=== PATIENT | male | born 1995 | race Caucasian/White ===

== ENCOUNTER 2019-03-07 16:10 | Emergency (ER) | payer BC, SELFPAY ==
[2019-03-07] VITALS (10 sets, daily range): BP systolic 115; BP diastolic 59; PULSE 81–101; RESP 14–50; TEMP 36.8; O2SAT 96–97
--- NOTE | 2019-03-07 16:13 | NUR.NOTE ---
Nursing Note: pt was found at a concert at [place] unresponsive by ems. EMS performed sternal rub which wok PT up. ems sates PT smelled of alcohol and admitted to having a few drinks ems states PT was not cooperative and refused vitals. pt appears visibly intoxicated however is not exhibiting violent behaviors despite his noncompliance. PT thinks he is in senior care
[2019-03-07 16:58] LABS: HCT 37.4 % (40.0-50.0); HGB 13.2 g/dL (13.5-17.5); Mean Corp. HGB Concentration 35.3 g/dL (32.0-36.0); Mean Corpuscular Hemoglobin 32.7 pg (27.0-33.0); Mean Corpuscular Volume 92.6 fL (80-95); Mean Platelet Volume 8.9 fL (8.0-11.0); Platelet Count 251 x1000/uL (130-400); RBC 4.04 m/cumm (4.50-6.00); RBC Distribution Width 11.1 % (11.8-14.1)
[2019-03-07] MEDS: Normal Saline 1,000 ML 1000 ML IV ×2 (17:06→18:08)
[2019-03-07 17:12] LABS: *AMPHETAMINES SCREEN URINE Negative (Negative); *BARBITURATES SCREEN URINE Negative (Negative); *BENZODIAZEPINES SCREEN URINE Negative (Negative); Cannabinoids THC Negative (Negative); Cocaine Screen,Urine Negative (Negative); METHADONE URINE SCREEN Negative (Negative); OPIATES URINE SCREEN Negative (Negative)
[2019-03-07 17:12] LABS: ALT 38 U/L (16-63); AST 30 U/L (15-37); Albumin 3.9 g/dL (3.4-5.0); Alkaline Phosphatase 60 U/L (46-116); Anion Gap 11.7 mmol/L (3-11); BUN 6 mg/dL (7-18); Bilirubin, Total 0.7 mg/dL (0.2-1.0); CO2 24.3 mmol/L (21.0-32.0); CREATININE 0.76 mg/dL (0.70-1.30); Calcium 8.1 mg/dL (8.5-10.1); Chloride 101 mmol/L (98-107); Glucose 112 mg/dL (70-100); Potassium 3.7 mmol/L (3.5-5.1); Sodium 137 mmol/L (136-145); Total Protein 7.3 g/dL (6.4-8.2)
[2019-03-07 17:23] LABS: Tricyclic Antidepressants Negative (Negative)
[2019-03-07 17:24] LABS: Acetaminophen < 2 ug/mL (10-30)
--- NOTE | 2019-03-07 18:20 | NUR.NOTE ---
Nursing Note: pt exhibiting increased clinical sobriety able to keep down liquids and solids
[2019-03-07 18:52] LABS: ETHANOL BLOOD 308.4 mg/dL (<3)
--- NOTE | 2019-03-07 19:36 | W.ED.GENAD ---
Discharge Plan Disposition Patient Disposition: OTHER Condition: Stable Discharge Details Chief Complaint: ETOHWithdr Clinical Impression: Alcohol intoxication Primary Care Provider: [facility] Provider: Vale Nam Home Meds and New Rx's Prescriptions: No Action hydroxyzine HCl 25 mg Tablet 25 mg PO TID PRNRF: 0 Discharge Instructions Instructions: Alcohol Intoxication (ED) Additional Instructions: Stop drinking alcohol. Push fluids by mouth Follow-up with your primary care doctor for reevaluation. Return for any worsening or concerns sooner if needed Medical Decision Making Patient presents found by EMS concern for alcohol. Patient admits to partying for the last 3 days in [place]. Was driving home to [place] when he reports he was tired and pulled over to take a nap. Patient laid in the grass when it was Friday and reports falling asleep. Denies any suicidal or homicidal ideation. Patient's RDS negative. EtOH 300. Patient has received 3 L of fluid. Clinically alert and oriented to speech. Drowsy. Patient patient will be escorted to police custody to sober overnight given be discharged at this time to their custody. Patient is agitated as he wants to go to his hotel room which he has paid for but has no sober ride. Patient is medically cleared. Has no apparent medical issues or injuries. HPI General Date/Time Provider Initiated Documentation: 03/07/19 16:27. HPI Narrative: Patient presents via EMS found asleep in the grass. Patient brought to the ER for concern of EtOH. Patient reports he spent the last 3 days in [place] partying. Patient denies any sites of pain. Denies head, neck or back pain. Denies chest pain, difficulty breathing shortness of breath or wheezing. Denies abdominal pain. Denies any other concerns or complaints at this time. Patient reports he laid down in the grass to fall asleep. Denies suicidality or homicidality. Patient was traveling home to [place] and stopped because he was tired. Patient reports he has not slept in the last 3 days. Related Data Home Medications Medication Instructions Recorded Confirmed hydroxyzine HCl 25 mg PO TID PRN 03/07/19 03/07/19 Allergies Allergy/AdvReac Type Severity Reaction Status Date / Time No Known Allergies Allergy Unverified 03/07/19 16:23 General Stated Complaint: ETOHWithdr MIGUEL: 4 Review of Systems Review of Systems Narrative: CONSTITUTIONAL: The patient denies fevers, chills. EYES: Denies vision changes, blurry vision, or eye pain. ENT: Denies hearing changes, tinnitus, vertigo, sore throat. CARDIAC: Denies chest pain, SOB. RESPIRATORY: Denies cough, sputum. Denies difficulty breathing. GASTROINTESTINAL: Denies abdominal pain, changes in bowel, vomiting or nausea. GENITOURINARY: Denies dysuria, or frequency of urination. MUSCULOSKELETAL: Denies Joint pain, gait changes. NEUROLOGIC: Denies headaches, Denies focal weakness. Denies numbness. INTEGUMENT: Denies rashes. PSYCHIATRIC: Denies behavior changes. Denies anxiety or depression. ENDOCRINOLOGY: Denies fatigue. PSYCHIATRY: Denies depression, agitation or anxiety [facility] Social History Smoking/Tobacco Use Status: Current every day Tobacco Type: cigarettes Alcohol Intake: current Alcohol Intake frequency: a few times a month Alcohol type: beer, wine and hard liquor Drug use: Never Substance use type: marijuana Do you feel safe at home: Yes Do you feel safe in your relationship?: Yes Exam Narrative Exam Narrative: CONST: Healthy appearing patient, in no acute distress. Well hydrated. Alert and alert. HENMT: Head nomocephalic, normal to inspection. Atraumatic. Hearing grossly normal. EYES: General normal appearance. Alignment normal. Eyelids normal. Conjunctiva normal. NECK: Normal visual inspection. FROM. Trachea midline. No Midline tenderness. CHEST: Normal insepection of the chest. RESP: Normal respiratory effort. Speaking full sentences. No cough. No audible wheezing. No retractions. CARDIO: No JVD. MUSCULOSKELETAL: Normal Gait. FROM of all extremities. SKIN: Normal. Dry. No rashes. NEURO: Alert and awake. Speech clear. PSYCH: Normal affect. Cooperative. Course Vital Signs Vital signs: Vital Signs Temperature 36.8 C 03/07/19 16:20 Pulse 88 03/07/19 16:20 Respiratory Rate 17 03/07/19 16:20 Pulse Oximetry 96 03/07/19 16:20 Temperature 36.8 C 03/07/19 16:20 Temperature Source Skin 03/07/19 16:20 Pulse 88 03/07/19 16:20 Respiratory Rate 17 03/07/19 16:20 Respiratory Effort 03/07/19 16:24 Respiratory Pattern Normal 03/07/19 16:33 Blood Pressure Position Supine 03/07/19 16:20 Pulse Oximetry 96 03/07/19 16:20 Oxygen Delivery Method Room Air 03/07/19 16:20 Oxygen Flow Rate 0 03/07/19 16:20 Lab/Test Results Lab/Test Results: Laboratory Tests Range/Units 03/07/19 03/07/19 03/07/19 16:44 16:50 16:50 WBC (4.4-10.8) k/cumm 5.00 RBC (4.50-6.00) m/cumm 4.04 L Hgb (13.5-17.5) g/dL 13.2 L Hct (40.0-50.0) % 37.4 L MCV (80-95) fL 92.6 MCH (27.0-33.0) pg 32.7 MCHC (32.0-36.0) g/dL 35.3 RDW (11.8-14.1) % 11.1 L Plt Count (130-400) x1000/uL 251 MPV (8.0-11.0) fL 8.9 Sodium (136-145) mmol/L 137 Potassium (3.5-5.1) mmol/L 3.7 Chloride (98-107) mmol/L 101 Carbon Dioxide (21.0-32.0) mmol/L 24.3 Anion Gap (3-11) mmol/L 11.7 H BUN (7-18) mg/dL 6 L Creatinine (0.70-1.30) mg/dL 0.76 Estimated GFR/1.73 m2 (mL/min/1.73m2) >= 60.00 Glucose (70-100) mg/dL 112 H Calcium (8.5-10.1) mg/dL 8.1 L Total Bilirubin (0.2-1.0) mg/dL 0.7 AST (15-37) U/L 30 ALT (16-63) U/L 38 Alkaline Phosphatase (46-116) U/L 60 Total Protein (6.4-8.2) g/dL 7.3 Albumin (3.4-5.0) g/dL 3.9 Urine Opiates Screen (Negative) Negative Urine Methadone Screen (Negative) Negative Acetaminophen (10-30) ug/mL Ur Barbiturates Screen (Negative) Negative Ur Tricyclics Screen (Negative) Negative Ur Amphetamines Screen (Negative) Negative U Benzodiazepines Scrn (Negative) Negative Urine Cocaine Screen (Negative) Negative Ur THC Screen (Negative) Negative Ethyl Alcohol (<3) mg/dL Range/Units 03/07/19 03/07/19 16:50 18:30 WBC (4.4-10.8) k/cumm RBC (4.50-6.00) m/cumm Hgb (13.5-17.5) g/dL Hct (40.0-50.0) % MCV (80-95) fL MCH (27.0-33.0) pg MCHC (32.0-36.0) g/dL RDW (11.8-14.1) % Plt Count (130-400) x1000/uL MPV (8.0-11.0) fL Sodium (136-145) mmol/L Potassium (3.5-5.1) mmol/L Chloride (98-107) mmol/L Carbon Dioxide (21.0-32.0) mmol/L Anion Gap (3-11) mmol/L BUN (7-18) mg/dL Creatinine (0.70-1.30) mg/dL Estimated GFR/1.73 m2 (mL/min/1.73m2) Glucose (70-100) mg/dL Calcium (8.5-10.1) mg/dL Total Bilirubin (0.2-1.0) mg/dL AST (15-37) U/L ALT (16-63) U/L Alkaline Phosphatase (46-116) U/L Total Protein (6.4-8.2) g/dL Albumin (3.4-5.0) g/dL Urine Opiates Screen (Negative) Urine Methadone Screen (Negative) Acetaminophen (10-30) ug/mL < 2 L Ur Barbiturates Screen (Negative) Ur Tricyclics Screen (Negative) Ur Amphetamines Screen (Negative) U Benzodiazepines Scrn (Negative) Urine Cocaine Screen (Negative) Ur THC Screen (Negative) Ethyl Alcohol (<3) mg/dL 308.4
== END 2019-03-07 22:15 | disposition other institution (70) ==
PROVIDERS: Emergency Provider Physician Assistant
DX: F10.120 Alcohol abuse with intoxication, uncomplicated (principal)
CPT/HCPCS: 36415; 80053; 80307; 85027; 96360; 96361; 99285; 80320; 80329; 99284